=== PATIENT | female | born 1980 | race Caucasian/White ===

== ENCOUNTER 2023-05-10 10:40 | Emergency (ER) | payer OTHER, SELFPAY ==
[2023-05-10 10:49] VITALS: BP 152/89; PULSE 92; RESP 16; TEMP 37; O2SAT 99
--- NOTE | 2023-05-10 10:51 | ED.URI ---
HPI - URI/Sore Throat General Chief Complaint: Upper Respiratory Infection Stated Complaint: Sore Throat/Rash History of Present Illness HPI Narrative: 43 y/o female presented for c/o sore throat for 5 days. States her throat 'is aggitated' and worse with swallowing. Reports nasal drip and decreased appetite. States her brother has strep. Taking ibuprofen for pain. Denies vomiting, fever, sob, wheezing or fatigue. Scheduled with pcp in 2 days. Related Data Home Medications Medication Instructions Recorded Confirmed famotidine 20 mg tablet mg 05/10/23 omeprazole 20 mg capsule,delayed mg 05/10/23 release Allergies Allergy/AdvReac Type Severity Reaction Status Date / Time doxycycline Allergy Unknown Rash Verified 04/05/19 19:10 Review of Systems Review of Systems: CONSTITUTIONAL: Denies body aches, fever, chills, or sweats. EYES: Denies visual changes, redness, or discharge. ENT: reports rhinorrhea, sore throat Denies otalgia. CARDIOVASCULAR: Denies chest pain, palpitations, or edema. RESPIRATORY: Denies dyspnea. GASTROINTESTINAL: Denies abdominal pain, nausea, vomiting, or diarrhea. SKIN: Denies rash, itching, or wounds. MUSCULOSKELETAL: Denies back pain, joint pain, or myalgia. NEUROLOGIC: Denies headache Exam Narrative: GENERAL: well-appearing, no acute distress. EYES: conjunctivae clear ENT: Mucous membranes moist. TM pearly rodriguez with normal light reflex bilaterally; no tragal tenderness. Oropharynx mildly erythematous without lesions. Tonsils 1+ without exudate. No drooling, no hoarseness, no trismus, uvula midline. No tripod positioning, hot potato voice, or soft palate swelling. NECK: Supple. No lymphadenopathy CHEST: Clear to auscultation, breath sounds equal. No respiratory distress, speaks in full sentences. HEART: Regular rate and rhythm. No murmur heard. SKIN: Warm, dry, no rash. NEURO: Alert and oriented x3. Course Course Emergency Course: Patient is aware of diagnosis, understands and agrees to treatment plan. Anticipatory guidance given. Patient agrees to follow-up as directed and is aware of reasons to seek care at the emergency department. Portions of this record may have been created with voice recognition software Level of Care: Express Care Visit MDM - URI/Sore Throat MDM Narrative Medical decision making narrative: Neg covid and strep result reviewed with pt. Will send abx due to her known exposure. Many questions answered, v/u. Well appearing. Advise supportive treatments and s/s to go to the ER. At this time she states she went to ER at [facility] days ago, states they did not do any testing/treatment just looked in her throat. Patient is appropriate for outpatient treatment and follow-up as scheduled in 2 days. Differential Diagnosis Differential diagnosis: Likely upper respiratory infection, otitis media, sinusitis, viral infection and pharyngitis Discharge Plan Discharge Clinical Impression: Pharyngitis Qualifiers: Pharyngitis/tonsillitis etiology: unspecified etiology Qualified Code(s): J02.9 - Acute pharyngitis, unspecified Patient Disposition: Home, Self-Care Condition: Stable Instructions: Antibiotic Form, Pharyngitis (ED), Strep Throat (ED) Additional Instructions: Covid test negative Rapid strep swab was negative today You will be notified in a few days if the culture comes back positive for strep, and appropriate antibiotics will be called in at that time. if symptoms are due to a viral illness, it is not treated with antibiotics. Viral symptoms can be present for up to 10-14 days. Recommend Flonase spray and Zyrtec for sinus congestion/drainage Tylenol every 8 hours as needed for pain/fever Soft foods, cool liquids, warm tea. Gargle with warm saltwater twice a day. Chloraseptic spray and throat lozenges. Rest and stay hydrated. --Follow up with your PCP --Go to the ER immediately if you cannot swallow your saliva, trouble les
[2023-05-10 10:52] VITALS: BP 152/89; PULSE 92; RESP 16; TEMP 37; O2SAT 99
== END 2023-05-10 11:25 | disposition home or self-care (01) ==
PROVIDERS: Emergency Provider Nurse Practitioner Family; PCP Nurse Practitioner Family
DX: J02.9 Acute pharyngitis, unspecified (principal); Z20.822 Contact with and (suspected) exposure to COVID-19
CPT/HCPCS: 87081; 87426; 87880; 99213; C9803; G0463

== ENCOUNTER 2023-05-13 17:59 | Emergency (ER) | payer OTHER, SELFPAY ==
[2023-05-13 18:12] VITALS: BP 143/83; PULSE 77; RESP 16; TEMP 36.8; O2SAT 96
--- NOTE | 2023-05-13 19:16 | ED.ABDPAIN ---
HPI - Abdominal Pain General Chief Complaint: Abdominal Pain Stated Complaint: Abdominal Pain/Low Back Pain Time Seen by Provider: 05/13/23 19:10 Source: patient, RN notes reviewed and old records reviewed Mode of arrival: ambulatory Limitations: no limitations History of Present Illness HPI narrative: 43 year old female presents to [facility] [place] [facility] with complaints of llQ abdominal pain for the past 2 days and some lower abdomen pressure feeling. Patient reports no burning or pain with urination but states that it feel aggravated when she urinates. Patient reports that she doesn't have menses anymore. Patient reports no problems with constipation denies any recent episodes of diarrhea. Patient states that she has taken Ibuprofen for her discomfort with minimal relief. Patient denies any vaginal discharge or itching or concern for STD exposure. MD elicited complaint: abdominal pain (LLQ and lower abomen, denies any right sided abdominal pain) Onset (ago): day(s) (2) Pain scale (0-10): 8 Quality: cramping and aching Treatments prior to arrival: NSAIDs Related Data Home Medications Medication Instructions Recorded Confirmed famotidine 20 mg tablet mg 05/10/23 omeprazole 20 mg capsule,delayed mg 05/10/23 release Allergies Allergy/AdvReac Type Severity Reaction Status Date / Time doxycycline Allergy Unknown Rash Verified 04/05/19 19:10 Review of Systems Review of Systems: CONSTITUTIONAL: Denies fever, chills, or sweats. CARDIOVASCULAR: Denies chest pain, palpitations, or edema. RESPIRATORY: Denies cough or dyspnea. GASTROINTESTINAL: Denies abdominal pain, nausea, vomiting, or diarrhea. GENITOURINARY: Reports no dysuria, frequency, urgency. Denies flank pain or hematuria.states feels aggravated when she urinates SKIN: Denies rash or itching. MUSCULOSKELETAL: Denies back pain or myalgia. Denies CVA tenderness NEUROLOGIC: Denies headache All systems reviewed & are unremarkable except as noted in HPI and below PMFSH Past Medical History Medical History (Updated 05/15/23 @ 21:40 by Aliza Faith NP) Depression GERD (gastroesophageal reflux disease) Surgical History Surgical History (Updated 05/15/23 @ 21:41 by Aliza Faith NP) H/O hand surgery left H/O tubal ligation History of endometrial ablation Previous section x3 Social History Social History (Updated 05/15/23 @ 21:37 by Aliza Faith NP) Smoking status: Never smoker Alcohol intake: unknown Substance use type: does not use Living arrangements: with family Gender identity (if verbalized by the patient): Female Comments At time of signature, agree with nursing past medical, surgical, social and family history. There is no relevant family history pertinent to the presenting complaint Exam Narrative: GENERAL: Well-appearing, well-nourished, and in no acute distress. HEAD: Normocephalic, atraumatic. NECK: Supple.no lymphadenopathy CHEST: Clear to auscultation. No respiratory distress.SAO2 96% on room air HEART: Regular rate and rhythm. No murmur heard. Normal peripheral pulses. ABDOMEN: Soft, nontender to palpation No McBurney point pain, nondistended, normal active bowel sounds. No CVA tenderness reports that it feels aggravated when she voids. EXTREMITIES: Normal range of motion. No edema. SKIN: Warm, dry, no rash. NEURO: No focal deficits. Alert and oriented x3. Course Course Emergency Course: Patient is aware of diagnosis, understands and agrees to treatment plan.? Anticipatory guidance given.? Patient agrees to follow-up as directed and is aware of reasons to seek care at the emergency department. Portions of this record may have been created with voice recognition software Level of Care: Express Care Visit Vital Signs Vital signs: Vital Signs Temperature 36.8 C 05/13/23 18:12 Pulse Rate 77 05/13/23 18:12 Respiratory Rate 16 05/13/23 18:12 Blood Pressure 143/83 H 05/13/23 18:12 Pu
== END 2023-05-13 19:40 | disposition home or self-care (01) ==
PROVIDERS: Emergency Provider Registered Nurse; PCP Nurse Practitioner Family
DX: N39.0 Urinary tract infection, site not specified (principal)
CPT/HCPCS: 81003; 87086; 99213; G0463

== ENCOUNTER 2023-05-28 18:35 | Emergency (ER) | payer OTHER, SELFPAY ==
--- NOTE | ~2023-05-28 | XR_ITS ---
EXAMINATION: XR chest 2V DATE: 05/28/2023 19:05 INDICATION: Shortness of breath. Anterior chest pain. TECHNIQUE: Frontal and lateral views of the chest were obtained. COMPARISON: None. FINDINGS: There is no pneumonia, pleural effusion, or pneumothorax. The heart size is normal. IMPRESSION: 1. No acute cardiopulmonary disease. Reviewed, dictated and finalized at location E.
[2023-05-28 18:42] VITALS: BP 126/73; PULSE 73; RESP 24; TEMP 36.5; O2SAT 99
--- NOTE | 2023-05-28 18:43 | ED.GENADULT ---
HPI - General Adult General Chief complaint: Shortness of Breath/Dyspnea Stated complaint: Shortness of Breath Source: patient, family and RN notes reviewed History of Present Illness HPI narrative: 43 yo F presents to urgent care with complaints of shortness of breath. Pt states her SOB started yesterday. Pt states she has been having the feeling her throat is closing and tight for the last 4 weeks. Pt states she has been seen in the PCP's office and ER for this where she had a negative CT scan obtained. Pt states she is also having pain in her bilateral upper chest and mid back. Pt denies any fevers, chills, or vomiting. Pt states she has a hx of anxiety but the symptoms are usually intermittent. Pt states they won't give her anxiety medicine. Related Data Home Medications Medication Instructions Recorded Confirmed omeprazole 20 mg capsule,delayed 20 mg PO DAILY 05/10/23 05/28/23 release citalopram 10 mg tablet 10 mg PO DAILY 05/28/23 05/28/23 Allergies Allergy/AdvReac Type Severity Reaction Status Date / Time doxycycline Allergy Unknown Rash Verified 04/05/19 19:10 Review of Systems Review of Systems: Pertinent positives and pertinent negatives per HPI. [facility] Past Medical History Medical History (Updated 05/28/23 @ 19:03 by Courtney Fall, MARLINE) Depression GERD (gastroesophageal reflux disease) Surgical History Surgical History (Updated 05/15/23 @ 21:41 by Aliza Faith NP) H/O hand surgery left H/O tubal ligation History of endometrial ablation Previous section x3 Social History Social History (Updated 05/15/23 @ 21:37 by Aliza Faith NP) Smoking status: Never smoker Alcohol intake: unknown Substance use type: does not use Living arrangements: with family Gender identity (if verbalized by the patient): Female Comments At the time of my signature, I reviewed and agree with the nursing past medical, surgical, social, and family history. There is no relevant family history pertinent to the patient complaint. Exam Narrative: GENERAL: This is a well-nourished, well-developed patient, in no apparent distress. Pt appears and sounds like she is anxious. HEAD: normocephalic, atraumatic. EYES: Sclera clear/white. Vision is grossly intact. EARS: External ears normal, auditory canals clear and without drainage, TMs normal without perforation. Hearing grossly intact. NOSE: External nose normal with no obvious nasal discharge, nares without redness, no rhinorrhea. THROAT: Mucous membranes moist, posterior pharynx clear. NECK: Neck supple, non-tender without lymphadenopathy, masses or thyromegaly. CARDIOVASCULAR: Regular rate and rhythm without murmurs, gallops, or rubs. RESPIRATORY: Clear to auscultation. Breath sounds equal bilaterally. No wheezes, rales, or rhonchi. GASTROINTESTINAL: Abdomen soft, non-tender, nondistended. Bowel sounds are active. No hepato-splenomegaly, or palpable masses. No guarding. SKIN: warm, intact with no suspicious lesions or rash, good texture and turgor. NEURO: awake, alert, and oriented to person, place and time. There were no obvious focal neurologic abnormalities. EXTREMITIES: No clubbing, cyanosis, or edema. No joint tenderness, effusion, or edema noted. BACK: Nontender without deformity or crepitus. No flank tenderness. Course Course Level of Care: Express Care Visit Vital Signs Vital signs: Vital Signs Temperature 97.7 F 05/28/23 18:42 Pulse Rate 73 05/28/23 18:42 Respiratory Rate 24 H 05/28/23 18:42 Blood Pressure 126/73 05/28/23 18:42 Pulse Oximetry 99 05/28/23 18:42 Oxygen Delivery Room Air 05/28/23 18:42 Temperature 97.7 F 05/28/23 18:42 Pulse Rate 73 05/28/23 18:42 Respiratory Rate 24 H 05/28/23 18:42 Blood Pressure 126/73 05/28/23 18:42 Pulse Oximetry 99 05/28/23 18:42 Oxygen Delivery Room Air 05/28/23 18:42 Reviewed Medical Decision Making MDM Narrative Me
[2023-05-28 19:45] VITALS: RESP 20
--- NOTE | 2023-05-28 21:05 | PC.NURSE ---
1944 noted behavioral health alternatives previously provided/discussed
== END 2023-05-28 19:45 | disposition home or self-care (01) ==
PROVIDERS: Emergency Provider Nurse Practitioner Family
DX: F41.9 Anxiety disorder, unspecified (principal); F32.A Depression, unspecified; K21.9 Gastro-esophageal reflux disease without esophagitis
CPT/HCPCS: 71046; 99213; G0463

== ENCOUNTER 2024-06-07 10:43 | Emergency (ER) | payer OTHER, SELFPAY ==
[2024-06-07 10:48] VITALS: BP 140/78; PULSE 112; RESP 20; TEMP 37.3; O2SAT 97
--- NOTE | 2024-06-07 11:31 | ED_ITS ---
HPI - General Adult General Chief complaint: Upper Respiratory Infection Stated complaint: Sore Throat/Cough Time Seen by Provider: 06/07/24 11:20 Source: patient, RN notes reviewed and old records reviewed Mode of arrival: ambulatory Limitations: no limitations History of Present Illness HPI narrative: 44 year old female presents to [facility] care with complaints of 2 days of sore throat with increased pain today and also cough. Patient reports she went to work today and kept feeling worse and also felt feverish and had some chills. Patient reports throat is very painful has been using cough drops to soothe her throat and has taken Robitussin for her cough. Patient reports that daughter has been ill also. MD complaint: sore throat, cough Onset (ago): day(s) (2) Severity: moderate Treatments prior to arrival: other (Robitussin and cough drops) Related Data Home Medications Medication Instructions Recorded Confirmed omeprazole 20 mg capsule,delayed 20 mg PO DAILY 05/10/23 05/28/23 release citalopram 10 mg tablet 10 mg PO DAILY 05/28/23 05/28/23 fluticasone propionate 50 intranasal 06/07/24 mcg/actuation nasal spray,suspension hydroxyzine HCl 25 mg tablet mg 06/07/24 Allergies Allergy/AdvReac Type Severity Reaction Status Date / Time doxycycline Allergy Unknown Rash Verified 04/05/19 19:10 Review of Systems Review of Systems: CONSTITUTIONAL:Reports malaise, chills, sweats, has felt feverish EYES: Denies visual changes, redness, or discharge. ENT: Reports rhinorrhea, congestion, no sinus pain, no otalgia and positive for sore throat. CARDIOVASCULAR: Denies chest pain, palpitations, or edema. RESPIRATORY: Reports cough.? Denies dyspnea. GASTROINTESTINAL: Denies abdominal pain, nausea, vomiting, diarrhea SKIN: Denies rash or itching. MUSCULOSKELETAL:reports myalgia. NEUROLOGIC: Denies headache. All systems reviewed & are unremarkable except as noted in HPI and below PMFSH Past Medical History Medical History Depression GERD (gastroesophageal reflux disease) Surgical History Surgical History H/O hand surgery left H/O tubal ligation History of endometrial ablation Previous section x3 Social History Social History Smoking status: Never smoker Alcohol intake: unknown Substance use type: does not use Living arrangements: with family Gender identity (if verbalized by the patient): Female Comments At time of signature, agree with nursing past medical, surgical, social and family history. There is no relevant family history pertinent to the presenting complaint Exam Narrative: GENERAL: Ill -appearing, well-nourished, and in no acute distress. HEAD: Normocephalic EYES: PERRLA, conjunctivae clear ENT: Nares clear, turbinates edematous and erythematous, clear discharge. Mucous membranes moist. TM pearly rodriguez with dull light reflex bilaterally; no tragal tenderness. Oropharynx erythematous without lesions. Tonsils red not enlarged and without exudate, no drooling, no hoarseness, no trismus, uvula midline. NECK: Supple. No lymphadenopathy CHEST: Clear to auscultation, breath sounds equal. No wheezing, rhonchi, rales, or stridor. No respiratory distress, speaks in full sentences.cough noted SAO2 97% on room air HEART: Regular rate and rhythm. No murmur heard. SKIN: Warm, dry, no rash. NEURO: Alert and oriented x3. PSYCH: Normal mood and affect Course Course Emergency Course: Patient is aware of diagnosis, understands and agrees to treatment plan.? Anticipatory guidance given.? Patient agrees to follow-up as directed and is aware of reasons to seek care at the emergency department. Portions of this record may have been created with voice recognition software Level of Care: Express Care Visit Vital Signs Vital signs: Vital Signs Temperature 37.3 C 06/07/24 10:48 Pulse Rate 112 H 06/07/24 10:48 Respiratory Rate 20 06/07/24 10:48 Blood Pressure 140/78 06/07/24 10:48 Pulse Oximetry 97 06/07/24 10:48 Oxygen Delivery Room Air 06/07/24 10:48 Temperature 37.3 C 06/07/24 10:48 Pulse Rate 112 H 06/07/24 10:48 Respiratory Rate 20 06/07/24 10:48 Blood Pressure 140/78 06/07/24 10:48 Pulse Oximetry 97 06/07/24 10:48 Oxygen Delivery Room Air 06/07/24 10:48 Reviewed Medical Decision Making Differential Diagnosis Differential Diagnosis: URI, viral infection, pharyngitis, strep pharyngitis, COVID Medical Records Medical records reviewed: Yes I reviewed the external patient's medical records. Vital Signs Vital Signs: Vital Signs Temperature 37.3 C 06/07/24 10:48 Pulse Rate 112 H 06/07/24 10:48 Respiratory Rate 20 06/07/24 10:48 Blood Pressure 140/78 06/07/24 10:48 Pulse Oximetry 97 06/07/24 10:48 Oxygen Delivery Room Air 06/07/24 10:48 Temperature 37.3 C 06/07/24 10:48 Pulse Rate 112 H 06/07/24 10:48 Respiratory Rate 20 06/07/24 10:48 Blood Pressure 140/78 06/07/24 10:48 Pulse Oximetry 97 06/07/24 10:48 Oxygen Delivery Room Air 06/07/24 10:48 Lab Data Lab results reviewed: Yes I reviewed the patient's lab results. Lab results narrative: strep screen negative, culture sent,COVID positive Labs: Lab Results 06/07/24 Range/Units 10:56 POC SARS CoV-2 Ag Positive (Negative) POC Grp A Strep Screen Negative (Negative) Critical Care Time Critical Care Time Critical Care Time: No Discharge Plan Discharge Clinical Impression: COVID-19 Patient Disposition: Home, Self-Care Condition: Stable Instructions: How to Recover from COVID-19 at Home (ED) Additional Instructions: Increase fluids especially juices and water [id number] cough and cold medicine of your choice for your symptoms Zyrtec Claritin or Syeda daily Tylenol or ibuprofen for any fever pain heat to the face 20-30 minutes 4-6 times a day for pain Salt water gargles, throat lozenges or throat sprays as desired If your symptoms persist, change or worsen significantly before you can contact your personal physician then please, without delay, go to the emergency department for further evaluation. Follow-up with PCP in 7-10 days or sooner if needed Follow up with PCP soon in regards to your blood pressure which is elevated a janice threshold for referral. Blood pressure above 120/80 may indicate pre- hypertension. 140/78 COVID-19 DISCHARGE The following recommendations have been made by the CDC and local Health Departments, regarding COVID-19: Those individuals with mild cases of COVID-19 can generally be discontinued from isolation, 5 days AFTER the onset of symptoms AND the resolution of fever for 24hrs (without the use of fever-reducing medications) Those individuals who were asymptomatic, and tested positive, are discontinued from isolation 10 days AFTER their first positive COVID-19 test Those individuals with SEVERE to CRITICAL illness or immunocompromised diseases may require up to 20 days of home isolation or hospitalization Majority of mild to moderate cases can be treated at home, without hospitali zation or prescription medications You do not need a negative test result to return to work/school, assuming the above recommendations have been met and you are not symptomatic. At this time, return to work/school notes will not be provided. Guidelines from the local Health Department, CDC, and workplace are expected to be followed. All individuals in the household need to remained quarantined for up to 14 days if asymptomatic OR 10 days after the start of symptoms. Everyone in the home DOES NOT require testing, they are presumed positive and should quarantine as directed. Treating symptoms for mild to moderate cases may include: Tylenol, Flonase/nasal spray, OTC cold/flu medications recommended from your provider or any necessary prescription medications provided at your visit or from your PCP IF YOU TESTED NEGATIVE If you are symptomatic with reason to believe you have COVID-19, there is a high possibility your rapid test may not have detected the virus. Rapid testing is dependent on timing and viral load and may have a false- negative reading You should follow appropriate guidelines regarding quarantine, hand washing, mask wearing, and social distancing You may be sent for PCR testing as an outpatient to the [place] testing site Common Adult Symptoms: Fever/chills Cough Shortness of breath Fatigue, muscle aches Headache Loss of taste/smell Sore throat, congestion, runny nose GI symptoms (nausea, vomiting, diarrhea) Common Pediatric Symptoms Cough Fever GI symptoms (diarrhea, upset stomach, nausea, vomiting) Symptoms may differ in severity however, most cases do not require hospitalization. WHEN TO SEEK ER EVALUATION/TREATMENT Severe/persistent shortness of breath or difficulty breathing Elevated, persistent fevers without resolution with fever-reducing medications Chest pain Extreme fatigue/lethargy Complications of pre-existing disease Prescriptions: No Action citalopram 10 mg tablet 10 mg PO DAILY hydroxyzine HCl 25 mg tablet fluticasone propionate 50 mcg/actuation spray,suspension INTRANASAL omeprazole 20 mg capsule,delayed release(DR/EC) 20 mg PO DAILY Follow-up/Referrals: Rodas,Ebony Whittington APN [Primary Care Provider] - Stand Alone Forms: Work/School Release IP Time of Disposition: 12:03 Quality Linda Coma Scale Eyes: Open Verbal: Oriented and Alert Motor: Follows Commands Linda Coma Total Score: 15
[2024-06-07 11:42] LABS: EDSTREPNEGPOS1 Negative (Negative)
[2024-06-07 12:09] LABS: EDCOVIDSCREEN Positive (Negative)
== END 2024-06-07 12:14 | disposition home or self-care (01) ==
PROVIDERS: Emergency Provider Registered Nurse; PCP Nurse Practitioner Family
DX: U07.1 COVID-19 (principal); K21.9 Gastro-esophageal reflux disease without esophagitis; F32.A Depression, unspecified
CPT/HCPCS: 87081; 87426; 87880; 99213; G0463